=== PATIENT | male | born 1990 | race African-American/Black ===

== ENCOUNTER 2017-12-25 21:58 | Emergency (ER) | payer OTHER ==
[~2017-12-25] VITALS: Ht 185.4 cm; Wt 81.7 kg
[2017-12-25] MEDS ORDERED: VENTOLIN HFA 1818 GM INH (22:41)
[2017-12-25 23:02] VITALS: BP 136/73
--- NOTE | 2017-12-26 14:19 | EKG ---
[place] [address] ELECTROCARDIOGRAM REPORT Name: ISMAEL MARIO [id number] Admission: 12/25/17 Attend Phys: Discharge: 12/25/17 Date of : [birth year] Report #: [id number] THIS REPORT FOR: //name// [facility] ED Test Date: 2017-12-25 Test Time: 22:30:23 Pat Name: ISMAEL MARIO Department: Room: Gender: M Medical Records Director: DANELLE : 1990 Requested By: Nolberto Haynes Order Number: [id number] MD: Loco Livingston Measurements Intervals [place] Rate: 79 P: 76 ME: 170 QRS: 90 QRSD: 91 T: 51 QT: 353 QTc: 405 Interpretive Statements Sinus rhythm Borderline right axis deviation ST elev, probable normal early repol pattern No previous ECG available for comparison Electronically Signed On 12-26-2017 14:19:19 CDT by Loco Livingston [email or web address] <ELECTRONICALLY SIGNED> By: Loco Livingston MD, [facility] 12/26/17 1419 29 29 Loco Livingston MD, FACC /EPI
== END 2017-12-25 23:03 | disposition home or self-care (01) ==
LOC: M.ERS 21:58
DX: R06.00 Dyspnea, unspecified (principal); R07.89 Other chest pain